=== PATIENT | female | born 1970 | race Caucasian/White ===

== ENCOUNTER 2017-07-05 15:14 | Emergency (ER) | payer MEDICARE, MEDICAID ==
[~2017-07-05] VITALS: Ht 154.9 cm; Wt 65.0 kg
[~2017-07-05 15:14] MED LIST: AZEL0.05 EACH EYE; CLAR10TA13 PO; DIAZ5 PO; FLUT1SPR5 EACH NARE; IPRA0.02 NEB; IPRA17I INH; NAPR500T PO; SIMV20TA PO; TERB250T4 PO; VALP250C PO; VENTAER INH; ZIPR1CAP8 PO; [UNRECOGNIZED DRUG - SUPPLY]
[2017-07-05 15:15] VITALS: BP 138/87; PULSE 94; RESP 20; TEMP 98.4; O2SAT 97
--- NOTE | 2017-07-05 15:23 | PD ---
Physical Exam Time Seen by Provider: 15:20 Narrative 46yo F, presents voluntarily for psych evaluation, c/o thoughts of Suicide and having a break down after relapsing and smoking crack cocaine. Was clean for 7 years. Last smoked yesterday. Denies having a plan. Giovani hx of suicide attempts. Patient seen in triage. VS reviewed. Awaiting bed placement. Data Data Last Documented VS Vital Signs Date Time Temp Pulse Resp B/P Pulse Ox O2 Delivery O2 Flow Rate FiO2 07/05/17 15:15 98.4 94 20 138/87 97 Room Air MDM Supervised Visit with ALEXANDER: Liset Collins Jul 05, 2017 15:23
--- NOTE | 2017-07-05 15:34 | PD ---
HPI Chief Complaint: Psychiatric Symptoms Time Seen by Provider: 15:34 Travel History International Travel<30 days: No Contact w/Intl Traveler<30days: No Traveled to known affect area: No History of Present Illness HPI 46 YO F with PMH of bipolar presents to the ED for voluntary psychiatric evaluation. Patient states that she relapsed on crack cocaine, last use yesterday afternoon. She states she's been using for 3 weeks and she feels " out of control." She denies suicidal ideation. She states that she feels " like I need help." She complains of torres in her mouth from the crack pipe. She also complains of several chronic problems including lower back pain. She endorses increased urgency to go to urinate, denies dysuria. She is a daily cigarette smoker, denies alcohol or other illicit drug use. She denies risk of secondary to gynecological surgery. PFSH Past Medical History Asthma: Yes Heart Rhythm Problems: Yes Cardiac Catheterization: No Cardiovascular Problems: Yes (mumur) High Cholesterol: Yes Congestive Heart Failure: No Diabetes: No Diminished Hearing: No GERD: Yes Respiratory: Yes ?: Not Menopausal: No : 2 Para: 1 Miscarriage: 1 : 0 Ectopic : Yes Tubal Ligation: Yes Past Surgical History Abdominal Surgery: Yes (HERNIA SX) Coronary Artery Bypass Graft: No Social History Alcohol Use: Yes (RARE) Tobacco Use: Yes (1PPD) Substance Use: No Allergies-Medications (Allergen,Severity, Reaction): Coded Allergies: Demerol (Verified Allergy, Severe, HIVES ITCHING, 07/05/17) Vicodin (Verified Allergy, Intermediate, Itching, 07/05/17) Reported Meds & Prescriptions Reported Meds & Active Scripts Active Magic Mouthwash Adult Liq (Multi-Ingredient Mouthwash/Gargle) 120 Ml Susp 10 Ml SWISH-SWAL ACHS Each 5mL contains: Nystatin 200,000units, Diphenhydramine 4.25mg, Viscous Lidocaine 10mg, [place] syrup 0.8 mL Valium (Diazepam) 5 Mg Tab 5 Mg PO TID PRN Ziprasidone 40 Mg Cap 40 Mg PO BID Naproxen 500 Mg Tab 500 Mg PO BID Valproic Acid 250 Mg Cap 250 Mg PO TID Azelastine Opth Drops 0.05% Soln 1 Drop EACH EYE BID Ipratropium Neb (Ipratropium [place]) 0.5 Mg/2.5 Ml Amp 0.5 Mg NEB Q6HR NEB PRN Ventolin Hfa 18 GM Inh (Albuterol Sulfate) 90 Mcg/Act Aer 2 Puff INH Q6H PRN Atrovent HFA 12.9 GM Inh (Ipratropium [place]) 17 Mcg/Act Aer 2 Puff INH Q6HR PRN Simvastatin 20 Mg Tab 20 Mg PO DAILY [Orthotic Shoe] Reported Oxycontin (Oxycodone HCl) 10 Mg Tab 10 Mg PO Q8HR Percocet (Oxycodone-Acetaminophen) 10-325 mg Tab 1 Tab PO BID PRN Claritin-D 24 HR (Loratadine-Pseudoephedrine 24 HR) 10-240 Mg Tab 1 Tab PO DAILY Flonase Nasal [place] (Fluticasone Nasal [place]) 50 Mcg/Act [place] 100 Mcg EACH NARE BID Review of Systems Except as stated in HPI: all other systems reviewed are Neg Physical Exam Narrative GENERAL: Well-nourished, well-developed white female in no acute distress. PSYCHIATRIC: No delusional thought processes. No hallucinations. Intermittently tearful. SKIN: Focused skin assessment warm/dry. HEAD: Normocephalic. EYES: No scleral icterus. No injection or drainage. ENT: Subcentimeter ulcerations on the lower alveolar ridge without signs of abscess. NECK: Supple, trachea midline. No JVD or lymphadenopathy. CARDIOVASCULAR: Regular rate and rhythm without murmurs, gallops, or rubs. RESPIRATORY: Breath sounds equal bilaterally. No accessory muscle use. GASTROINTESTINAL: Abdomen soft, non-tender, nondistended. Active bowel sounds. MUSCULOSKELETAL: No cyanosis, or edema. BACK: Nontender without obvious deformity. No CVA tenderness. Data Data Last Documented VS Vital Signs Date Time Temp Pulse Resp B/P Pulse Ox O2 Delivery O2 Flow Rate FiO2 07/05/17 15:15 98.4 94 20 138/87 97 Room Air Orders Complete Blood Count With Diff (07/05/17 15:33) Comprehensive Metabolic Panel (07/05/17 15:33) Urinalysis - C+S If Indicated (07/05/17 15:33) Ed Urine Pregnancytest Poc (07/05/17 15:33) Psych Screen (07/05/17 15:33) Drug Screen, Random Urine (07/05/17 15:33) Alcohol (Ethanol) (07/05/17 15:33) Potassium Chloride (Kcl) (07/05/17 17:30) Labs Laboratory Tests Test 07/05/17 15:50 White Blood Count 15.6 TH/MM3 Red Blood Count 4.05 MIL/MM3 Hemoglobin 12.5 GM/DL Hematocrit 37.4 % Mean Corpuscular Volume 92.2 FL Mean Corpuscular Hemoglobin 30.8 PG Mean Corpuscular Hemoglobin 33.4 % Concent Red Cell Distribution Width 13.3 % Platelet Count 280 TH/MM3 Mean Platelet Volume 9.3 FL Neutrophils (%) (Auto) 82.0 % Lymphocytes (%) (Auto) 13.0 % Monocytes (%) (Auto) 4.3 % Eosinophils (%) (Auto) 0.5 % Basophils (%) (Auto) 0.2 % Neutrophils # (Auto) 12.8 TH/MM3 Lymphocytes # (Auto) 2.0 TH/MM3 Monocytes # (Auto) 0.7 TH/MM3 Eosinophils # (Auto) 0.1 TH/MM3 Basophils # (Auto) 0.0 TH/MM3 CBC Comment DIFF FINAL Differential Comment Urine Color YELLOW Urine Turbidity HAZY Urine pH 6.0 Urine Specific [place] 1.034 Urine Protein TRACE mg/dL Urine Glucose (UA) NEG mg/dL Urine Ketones NEG mg/dL Urine Occult Blood TRACE Urine Nitrite NEG Urine Bilirubin NEG Urine Urobilinogen 2.0 MG/DL Urine Leukocyte Esterase NEG Urine RBC 3 /hpf Urine WBC 1 /hpf Urine Squamous Epithelial 6 /hpf Cells Urine Mucus FEW /lpf Microscopic Urinalysis Comment CULT NOT INDICATED Sodium Level 142 MEQ/L Potassium Level 3.2 MEQ/L Chloride Level 105 MEQ/L Carbon Dioxide Level 30.3 MEQ/L Anion Gap 7 MEQ/L Blood Urea Nitrogen 11 MG/DL Creatinine 0.81 MG/DL Estimat Glomerular Filtration 76 ML/MIN Rate Random Glucose 93 MG/DL Calcium Level 8.8 MG/DL Total Bilirubin 0.4 MG/DL Aspartate Amino Transf 14 U/L (AST/SGOT) Alanine Aminotransferase 21 U/L (ALT/SGPT) Alkaline Phosphatase 51 U/L Total Protein 6.6 GM/DL Albumin 3.6 GM/DL Urine Opiates Screen POS Urine Barbiturates Screen NEG Urine Amphetamines Screen NEG Urine Benzodiazepines Screen POS Urine Cocaine Screen POS Urine Cannabinoids Screen POS Ethyl Alcohol Level LESS THAN 3 MG/DL MDM Medical Decision Making Medical Screen Exam Complete: Yes Emergency Medical Condition: Yes Differential Diagnosis Adjustment disorder versus anxiety versus bipolar versus depression versus dementia versus electrolyte disorder versus malingering versus mood disorder versus ODD versus psychosis versus PTSD versus schizophrenia versus schizoaffective disorder versus substance-induced mood disorder versus other Narrative Course 46 YO F with PMH of bipolar presents to the ED for voluntary psychiatric evaluation. Patient states that she relapsed on crack cocaine, last use yesterday afternoon. She states she's been using for 3 weeks and she feels " out of control." She denies suicidal ideation. She states that she feels " like I need help." She complains of torres in her mouth from the crack pipe. She also complains of several chronic problems including lower back pain. She endorses increased urgency to go to urinate, denies dysuria. She is a daily cigarette smoker, denies alcohol or other illicit drug use. She denies risk of secondary to gynecological surgery. Vitals reviewed. Physical exam reveals a white female in no acute distress. There is a few ulcerations of the lower alveolar ridge in the mouth but the physical exam is otherwise unremarkable. Leukocytosis of ~15, likely stress response. No concerning abnormalities of CMP, UA. Tox screen positive for opiates, benzodiazepines, cocaine, cannabis. The patient is medically clear for psychiatric evaluation. Please see psychiatric note for disposition. Diagnosis Primary Impression: Oral ulceration Med/Other Pt SpecificInfo: Prescription(s) given Scripts Qgclodnf-Sviebysictkwvyz-Nprsvaqub Liq (Magic Mouthwash Adult Liq)120 Ml Susp10 Ml SWISH-SWAL ACHS #120 ML Ref 0 Each 5mL contains: Nystatin 200,000units, Diphenhydramine 4.25mg, Viscous Lidocaine 10mg, [place] syrup 0.8 mL Prov:Mona Beckwith MD 07/05/17 Mariella Ferreira Jul 05, 2017 15:34
[2017-07-05] MEDS ORDERED: PERC10TA27 PO (15:36)
[2017-07-05] MEDS ORDERED: LORA-400 PO (15:36)
[2017-07-05] MEDS ORDERED: OXYC-259 PO (15:36)
[2017-07-05 16:11] LABS: AUTOMATED NEUTROPHIL # 12.8 TH/MM3 (1.8-7.7); BASOPHIL % 0.2 % (0.0-2.0); EOSINOPHIL # 0.1 TH/MM3 (0-0.4); EOSINOPHIL % 0.5 % (0.0-4.0); HEMATOCRIT 37.4 % (35.0-46.0); HEMO FLAGS DIFF FINAL; MEAN CELL VOLUME 92.2 FL (80.0-100.0); MEAN CORPUSCULAR HEMOGLOBIN 30.8 PG (27.0-34.0); MEAN CORPUSCULAR HGB CONC 33.4 % (32.0-36.0); MONO % 4.3 % (0.0-8.0); PLATELET COUNT 280 TH/MM3 (150-450); RED BLOOD COUNT 4.05 MIL/MM3 (4.00-5.30); RED CELL DISTRIBUTION WIDTH 13.3 % (11.6-17.2); WHITE BLOOD COUNT 15.6 TH/MM3 (4.0-11.0)
[2017-07-05 16:15] LABS: BLOOD, URINE TRACE (NEG); COMMENT (UR) CULT NOT INDICATED; CULTURE IF INDICATED CULT NOT INDICATED; GLUCOSE,URINE NEG (NEG); KETONE, URINE NEG (NEG); MUCUS URINE FEW /lpf (OCC); NITRITE,URINE NEG (NEG); SQUAMOUS EPITHELIAL CELL URINE 6 /hpf (0-5); URINE COLOR YELLOW (YELLW/STRAW)
[2017-07-05] MEDS ORDERED: MAGICADU2 SWISH-SWAL (16:16)
[2017-07-05 16:36] LABS: ALT (GPT) 21 U/L (10-53); ANION GAP 7 MEQ/L (5-15); AST (GOT) 14 U/L (15-37); BICARBONATE 30.3 MEQ/L (21.0-32.0); BLOOD UREA NITROGEN 11 MG/DL (7-18); CHLORIDE 105 MEQ/L (98-107); GLOMERULAR FILTRATION RATE 76 ML/MIN (>89); POTASSIUM 3.2 MEQ/L (3.5-5.1); SODIUM (NA) 142 MEQ/L (136-145)
[2017-07-05 16:37] LABS: ALCOHOL LESS THAN 3 MG/DL (0-5)
[2017-07-05 16:38] LABS: ALKALINE PHOSPHATASE 51 U/L (45-117); TOTAL BILIRUBIN ADULT 0.4 MG/DL (0.2-1.0)
[2017-07-05] MEDS ORDERED: POTASSIUM CHLORIDE 20 MEQ CONTROLLED RELEASE TAB PO ONE (17:30)
[2017-07-05 18:36] VITALS: BP 134/56; PULSE 78; RESP 16; O2SAT 100
[2017-07-06 02:13] VITALS: BP 120/79; PULSE 68; RESP 17; O2SAT 96
[2017-07-06 06:26] VITALS: BP 118/73; PULSE 68; RESP 17; O2SAT 99
[2017-07-06 10:36] VITALS: BP 138/83; PULSE 70; RESP 18; O2SAT 98
[2017-07-06 12:42] VITALS: BP 138/83; PULSE 70; RESP 18; O2SAT 98
[2017-07-20] MEDS ORDERED: MAGICADU2 SWISH-SWAL (13:38)
== END 2017-07-06 14:35 | disposition home or self-care (01) ==
LOC: NEPC 15:14 → NEPJ 07-06 14:35
DX: K12.1 Other forms of stomatitis (principal); F17.210 Nicotine dependence, cigarettes, uncomplicated; F14.90 Cocaine use, unspecified, uncomplicated; M54.5 Low back pain
CPT/HCPCS: 80053; 80307; 81001; 84703; 85025; 99283